=== PATIENT | female | born 1995 | race Caucasian/White ===

== ENCOUNTER 2017-11-17 15:08 | Emergency (ER) | payer BC, OTHER ==
[2017-11-17 15:31] LABS: Bilirubin Negative (Negative); Blood, Urine Negative (Negative); Clarity Clear (Clear); Glucose, Urine (Dipstick) Negative (Negative); Leukocyte Negative (Negative); Nitrite Negative (Negative); Pregnancy Test - Urine (BHCG) Negative (Negative); Pregu Control Background? CLEAR/WHITE (CLR/WHITE); Pregu Control Bar Appear? YES (CONTROL BAR); Protein, Urine (Dipstick) Negative (Neg-Trace); Urobilinogen 0.2 mg/dL (0.2-1.0)
== END 2017-11-17 15:50 | disposition home or self-care (01) ==
LOC: BURERS 15:08
DX: J02.9 Acute pharyngitis, unspecified (principal); F32.9 Major depressive disorder, single episode, unspecified; F17.210 Nicotine dependence, cigarettes, uncomplicated
CPT/HCPCS: 81003; 81025; 99284

== ENCOUNTER 2019-03-07 14:29 | Emergency (ER) | payer OTHER ==
[2019-03-07] MEDS ORDERED: diphenhydrAMINE 25 MG CAP ONE (14:58)
[2019-03-07] MEDS ORDERED: predniSONE 20 MG TAB ONE (14:58)
[2019-03-07 15:21] LABS: Bilirubin Negative (Negative); Blood, Urine Negative (Negative); Clarity Clear (Clear); Glucose, Urine (Dipstick) Negative (Negative); Leukocyte Negative (Negative); Nitrite Negative (Negative); Protein, Urine (Dipstick) Negative (Neg-Trace); Urobilinogen 0.2 mg/dL (Less than 2)
[2019-03-07 15:21] LABS: #Basophils 0.1 thou/uL (0.0-0.2); #Eosinphils 0.2 thou/uL (0.0-0.7); #Lymphocytes 2.9 thou/uL (1.20-3.40); #Monocytes 0.7 thou/uL (0.11-0.59); #Neutrophils 7.1 thou/uL (1.40-6.50); %Basophils 0.7 % (0.0-1.0); %Eosinophils 1.7 % (0.0-10.0); %Lymphocytes 26.1 % (21.0-51.0); %Monocytes 6.4 % (0.0-10.0); %Neutrophils 65.1 % (42.0-75.0); Hemoglobin 14.3 g/dL (12.0-16.0); Mean Corpuscular HGB CONC 31.9 g/dL (32.0-36.0); Mean Corpuscular Hemoglobin 27.3 pg (27.0-31.0); Mean Corpuscular Volume 85.6 fL (78.0-98.0); Mean Platelet Volume 6.1 fL (7.4-10.4); Platelet Count 346 thou/uL (130-400); RBC Distribution Width 12.5 % (11.5-14.5); Red Blood Cell (RBC) Count 5.24 mill/uL (4.20-5.40)
[2019-03-07 15:28] LABS: Pregnancy Test - Urine (BHCG) Negative (Negative); Pregu Control Background? CLEAR/WHITE (CLR/WHITE); Pregu Control Bar Appear? YES (CONTROL BAR); Specific Gravity 1.015 (1.002-1.036)
[2019-03-07 15:35] LABS: ALT (SGPT) 23 U/L (8-55); AST (SGOT) 21 U/L (5-34); Albumin 4.4 g/dL (3.5-5.0); Alkaline Phosphatase 80 U/L (40-150); Anion Gap 15 mmol/L (10-20); BUN (Urea Nitrogen) 6 mg/dL (7.0-18.7); Bilirubin, Total 0.3 mg/dL (0.2-1.2); Calc. Creatinine Clearance 0 mL/min (70-130); Calcium 9.7 mg/dL (7.8-10.44); Carbon Dioxide 29 mmol/L (22-29); Chloride 101 mmol/L (98-107); Estimated GFR-MDRD 82; Globulin 2.9 g/dL (2.4-3.5); Glucose 112 mg/dL (70-105); Protein, Total 7.3 g/dL (6.0-8.3); Sodium 141 mmol/L (136-145)
== END 2019-03-07 15:50 | disposition home or self-care (01) ==
LOC: BURERS 14:29
DX: G43.909 Migraine, unspecified, not intractable, without status migrainosus (principal); G40.909 Epilepsy, unspecified, not intractable, without status epilepticus; J45.909 Unspecified asthma, uncomplicated; F41.9 Anxiety disorder, unspecified; F32.9 Major depressive disorder, single episode, unspecified; Z79.899 Other long term (current) drug therapy
CPT/HCPCS: 36415; 80053; 81003; 81025; 85025; 96372; 99284; J7512; Q0163